=== PATIENT | female | born 1960 | race Caucasian/White ===

== ENCOUNTER 2019-01-06 09:47 | Day surgery (SDC) | payer BC ==
[2019-01-06] MEDS ORDERED: Propofol 200 MG/20 ML SDV ONE ×2 (10:08→10:23)
[2019-01-06] MEDS ORDERED: Midazolam 1 MG/ML 2 ML SDV ONE (10:08)
[2019-01-06] MEDS ORDERED: Sodium Chloride 0.9% 10 ML Syringe FLUSH PRN (10:15)
[2019-01-06] MEDS ORDERED: Lactated Ringers 1,000 ML IV SCH (10:15)
--- NOTE | 2019-01-06 11:10 | PCM.PN ---
- General Info Date of Service: 01/06/19 - Review of Systems Systems Review Comment:: 58-year-old female referred by Dr. Ilya Nielson for colonoscopy. The patient denies any recent change in bowel pattern. Her last colonoscopy was about 16 years ago. The patient is medically stable to proceed today. Her recent history and physical is reviewed and no significant changes are noted. I discussed the proposed colonoscopy with the patient. Risks such as but not limited to bleeding and GI injury reviewed. She agrees to proceed. - Patient Data Vitals - Most Recent: Last Vital Signs Temp 97.7 F 01/06/19 10:13 Pulse 82 01/06/19 10:13 Resp 14 01/06/19 10:13 BP 143/85 H 01/06/19 10:13 Pulse Ox 97 01/06/19 10:13 Weight - Most Recent: 76.204 kg Med Orders - Current: Current Medications Lactated Ringer's (Ringers, Lactated) 1,000 mls @ 50 mls/hr IV ASDIRECTED JASON Sodium Chloride (Saline Flush) 10 ml FLUSH Q8HR PRN PRN Reason: keep vein open - Problem List Review Problem List Initiated/Reviewed/Updated: Yes - My Orders Last 24 Hours: My Active Orders 01/05/19 14:21 Resuscitation Status Routine 01/06/19 10:15 Peripheral IV Care [RC] . DIRECTED Vital Signs [RC] PER UNIT ROUTINE Lactated Ringers [Ringers, Lactated] 1,000 ml IV ASDIRECTED Sodium Chloride 0.9% [Saline Flush] 10 ml FLUSH Q8HR PRN Peripheral IV Insertion Adult [OM.PC] Routine 01/06/19 10:30 Patient to Empty Bladder [RC] ASDIRECTED 01/06/19 11:15 Verify Patient Consent Obtain [RC] ASDIRECTED 01/06/19 Breakfast Nothing Per Oral Diet [DIET] - Assessment Assessment:: Colon cancer screening - Plan Plan:: Colonoscopy
[2019-01-06] MEDS ORDERED: Midazolam 1 MG/ML 2 ML SDV IV ONE (11:11)
[2019-01-06] MEDS ORDERED: Propofol 200 MG/20 ML SDV IV ONE (11:11)
--- NOTE | 2019-01-06 11:44 | PCM.OPNOTE ---
- General Post-Op/Procedure Note Date of Surgery/Procedure: 01/06/19 Operative Procedure(s): Colonoscopy Findings: Internal and External Hemorrhoids Pre Op Diagnosis: Colon Cancer Screening Post-Op Diagnosis: Hemorrhoids Anesthesia Technique: MAC Primary Surgeon: Jose Manuel Rubio Pathology: none EBL in mLs: 0 Complications: None Condition: Good
--- NOTE | 2019-01-06 17:48 | OR ---
DATE OF SURGERY: 01/06/2019 SURGEON: Jose Manuel Rubio MD PREOPERATIVE DIAGNOSIS: Colon cancer screening. POSTOPERATIVE DIAGNOSIS: Hemorrhoids. OPERATION PERFORMED: Colonoscopy. INDICATIONS FOR SURGERY: This 58-year-old female presents today for screening colonoscopy. It has been more than 10 years since her last colonoscopy. She denies any recent change in bowel pattern. FINDINGS: The patient has large internal and external hemorrhoids. These do not appear to be acutely inflamed. The colon otherwise appears normal. PROCEDURE: The patient was taken to the operating room. She was given intravenous sedation and with her in the left lateral decubitus position, digital rectal exam was performed showing no rectal masses although hemorrhoids were identified. The Olympus colonoscope was inserted into the rectum. Retroflexed examination of the rectal canal was performed. The scope was then carefully advanced under direct visualization through the entire length of the colon until the cecum is reached, cecal acquisition is confirmed by noting the normal internal cecal anatomy including the appendiceal orifice and ileocecal valve. The light is also noted to transilluminate the abdominal wall in the right lower quadrant. After examining the cecum, the scope was slowly withdrawn, sequentially re-examining the colonic segments until the entire colon and rectum had been fully examined. The scope was removed and the patient was taken from the operating room in satisfactory condition. ESTIMATED BLOOD LOSS: Zero. COMPLICATIONS: None. PROGNOSIS: Good. /[id number]/MODL
== END 2019-01-06 13:05 | disposition home or self-care (01) ==
LOC: KA.SDS 09:47
PROVIDERS: ATTEND Surgery
DX: Z12.11 Encounter for screening for malignant neoplasm of colon (principal); K64.4 Residual hemorrhoidal skin tags; K64.8 Other hemorrhoids; Z91.048 Other nonmedicinal substance allergy status; Z79.899 Other long term (current) drug therapy; Z79.82 Long term (current) use of aspirin
CPT/HCPCS: 45378; J2250; J2704; J7120